=== PATIENT | male | born 1945 | race African-American/Black ===

== ENCOUNTER 2019-08-01 08:11 | Inpatient (IN) ==
[2019-08-01] MEDS ORDERED: FUROSEMIDE 100 MG/10 ML VIAL IV STA (08:35)
[2019-08-01] MEDS ORDERED: ALBUTEROL 2.5 MG/3 ML NEB RESP TX STA (08:37)
[2019-08-01 09:02] LABS: Basophils % 0.5 % (0.0-0.8); Eosinophils # 0.4 10*3/uL (0.0-0.87); Eosinophils % 4.4 % (0.00-10.9); Hemoglobin 13.7 GM/DL (14.0-18.0); Immature Granulocytes % 0.4 %; Immature Granulocytes Absolute 0.03 #; Lymphocytes # 2.2 10*3/uL (1.4-4.0); Lymphocytes % 26.2 % (21.2-54.2); Mean Corpuscular HGB Conc 34.3 GM/DL (32-36); Mean Corpuscular Volume 93.5 FL (87-102); Mean Platelet Volume 9.1 FL (9.6-12.0); Monocytes % 8.8 % (1.7-12.7); Neutrophils % 59.7 % (38.7-73.9); Platelet Count 199 T/CUMM (130-400); Red Blood Count 4.28 MC/CUMM (3.8-5.5); Red Cell Distribution Width 12.8 % (9.3-17.3); White Blood Count 8.4 T/CUMM (4-12)
[2019-08-01 09:39] LABS: Bilirubin,Total 0.4 MG/DL (0.2-1.0); Calcium 8.9 MG/DL (8.5-10.1); Osmolality,Calculated 293.3 MOS/KG (273-304); Total Protein 7.3 G/DL (6.4-8.3)
[2019-08-01] MEDS ORDERED: methylPREDNISolone SOD SUC 125 MG/2 ML VIAL IV STA (10:24)
[2019-08-01] MEDS ORDERED: ALBUTEROL/IPRATROPIUM 3 ML NEB RESP TX STA (10:25)
[2019-08-01] MEDS ORDERED: ALBUTEROL/IPRATROPIUM 3 ML NEB RESP TX PRN (13:30)
[2019-08-01] MEDS ORDERED: ONDANSETRON 4 MG/2 ML VIAL IV PRN (13:34)
[2019-08-01] MEDS ORDERED: GLUCAGON 1 MG VIAL IM PRN (13:34)
[2019-08-01] MEDS ORDERED: ACETAMINOPHEN 325 MG TABLET PO PRN (13:34)
[2019-08-01] MEDS ORDERED: DOCUSATE SODIUM 100 MG CAPSULE PO PRN (13:34)
[2019-08-01] MEDS ORDERED: DEXTROSE 50% 25 GM/50 ML VIAL IV PRN (13:34)
[2019-08-01] MEDS ORDERED: ENOXAPARIN 80 MG/0.8 ML SYRINGE SUBCUT ONE (13:42)
[2019-08-01] MEDS: AZITHROMYCIN 250 MG TABLET PO SCH (13:59)
[2019-08-01 14:13] LABS: Risk Ratio 5.63; Thyroid Stimulating Hormone 1.11 uIU/ml (0.358-3.74); VLDL CHOLESTEROL 43.8 MG/DL
[2019-08-01] MEDS: INSULIN LISPRO 100 UNIT/ML SUBCUT SCH ×2 (16:42→21:27)
[2019-08-01] MEDS: ALBUTEROL/IPRATROPIUM 3 ML NEB RESP TX SCH (19:25)
[2019-08-01] MEDS: GABAPENTIN 300 MG CAPSULE PO SCH (21:25)
[2019-08-01] MEDS: glipiZIDE 10 MG TABLET PO SCH (21:26)
[2019-08-01] MEDS: ROSUVASTATIN 20 MG TABLET PO SCH (21:26)
[2019-08-01] MEDS: METOPROLOL TARTRATE 25 MG TABLET PO SCH (21:27)
[2019-08-01] MEDS: DICLOFENAC 1% GEL 100 GM TUBE TOP SCH (21:28)
[2019-08-02] MEDS: ALBUTEROL/IPRATROPIUM 3 ML NEB RESP TX SCH ×4 (01:23→19:27)
[2019-08-02 05:54] LABS: Basophils % 0.1 % (0.0-0.8); Eosinophils % 0.1 % (0.00-10.9); Hematocrit 39.7 VOL% (42.0-52.0); Hemoglobin 13.9 GM/DL (14.0-18.0); Immature Granulocytes % 0.7 %; Immature Granulocytes Absolute 0.11 #; Lymphocytes # 2.7 10*3/uL (1.4-4.0); Mean Corpuscular Volume 91.5 FL (87-102); Mean Platelet Volume 9.1 FL (9.6-12.0); Monocytes % 5.6 % (1.7-12.7); Neutrophils % 77.5 % (38.7-73.9); Platelet Count 208 T/CUMM (130-400); Red Blood Count 4.34 MC/CUMM (3.8-5.5); Red Cell Distribution Width 12.3 % (9.3-17.3); White Blood Count 16.8 T/CUMM (4-12)
[2019-08-02] MEDS ORDERED: SODIUM CHLORIDE 0.9% 1,000 ML IV SCH (08:00)
[2019-08-02] MEDS: ESCITALOPRAM 10 MG TABLET PO SCH (08:50)
[2019-08-02] MEDS: AZITHROMYCIN 250 MG TABLET PO SCH (08:50)
[2019-08-02] MEDS: methylPREDNISolone SOD SUC 40 MG/1 ML VIAL IV SCH ×2 (08:50→16:30)
[2019-08-02] MEDS: amLODIPine 10 MG TABLET PO SCH (08:51)
[2019-08-02] MEDS: METOPROLOL TARTRATE 25 MG TABLET PO SCH ×2 (08:51→21:14)
[2019-08-02] MEDS: glipiZIDE 10 MG TABLET PO SCH (08:51)
[2019-08-02] MEDS: DICLOFENAC 1% GEL 100 GM TUBE TOP SCH ×3 (08:51→21:15)
[2019-08-02] MEDS: PANTOPRAZOLE 40 MG TABLET PO SCH (08:51)
[2019-08-02] MEDS: INSULIN LISPRO 100 UNIT/ML SUBCUT SCH ×4 (08:57→21:18)
[2019-08-02] MEDS ORDERED: LOSARTAN 50 MG TABLET PO SCH (09:00)
[2019-08-02] MEDS ORDERED: NON-FORMULARY MEDICATION (Tiotropium Bromide [Spiriva With Handihaler] 1 CAPSULE) INH SCH (09:00)
[2019-08-02] MEDS: ENOXAPARIN 40 MG/0.4 ML SYRINGE SUBCUT SCH (15:15)
[2019-08-02] MEDS: SODIUM CHLORIDE 0.9% 1,000 ML IV SCH (19:50)
[2019-08-02] MEDS: ROSUVASTATIN 20 MG TABLET PO SCH (21:14)
[2019-08-02] MEDS: GABAPENTIN 300 MG CAPSULE PO SCH (21:14)
[2019-08-03] MEDS: methylPREDNISolone SOD SUC 40 MG/1 ML VIAL IV SCH ×3 (00:43→17:08)
[2019-08-03] MEDS: ALBUTEROL/IPRATROPIUM 3 ML NEB RESP TX SCH ×4 (01:41→19:15)
[2019-08-03 05:00] LABS: Basophils % 0.1 % (0.0-0.8); Hematocrit 36.1 VOL% (42.0-52.0); Hemoglobin 12.3 GM/DL (14.0-18.0); Immature Granulocytes % 0.5 %; Immature Granulocytes Absolute 0.07 #; Lymphocytes # 1.6 10*3/uL (1.4-4.0); Lymphocytes % 11.7 % (21.2-54.2); Mean Corpuscular HGB Conc 34.1 GM/DL (32-36); Mean Corpuscular Volume 92.3 FL (87-102); Mean Platelet Volume 9.2 FL (9.6-12.0); Monocytes % 1.9 % (1.7-12.7); Neutrophils % 85.8 % (38.7-73.9); Platelet Count 191 T/CUMM (130-400); Red Blood Count 3.91 MC/CUMM (3.8-5.5); Red Cell Distribution Width 12.8 % (9.3-17.3)
[2019-08-03 05:28] LABS: Calcium 8.5 MG/DL (8.5-10.1); Osmolality,Calculated 298.7 MOS/KG (273-304)
[2019-08-03] MEDS: SODIUM CHLORIDE 0.9% 1,000 ML IV SCH (06:13)
[2019-08-03 07:40] LABS: Total Protein (Chem) 6.7 G/DL (6.4-8.3)
[2019-08-03 08:43] LABS: Albumin (SPE) 3.9 G/DL (3.2-5.3); Albumin (SPE) Rel % 57.5 %; Alpha 1 (SPE) 0.2 G/DL (0.1-0.4); Alpha 1 (SPE) Rel % 2.7 %; Alpha 2 (SPE) 0.9 G/DL (0.4-1.0); Beta (SPE) 0.8 G/DL (0.5-1.1); Beta (SPE) Rel % 11.4 %; Gamma (SPE) Rel % 14.4 %
[2019-08-03] MEDS: PANTOPRAZOLE 40 MG TABLET PO SCH (09:22)
[2019-08-03] MEDS: AZITHROMYCIN 250 MG TABLET PO SCH (09:23)
[2019-08-03] MEDS: ESCITALOPRAM 10 MG TABLET PO SCH (09:23)
[2019-08-03] MEDS: METOPROLOL TARTRATE 25 MG TABLET PO SCH ×2 (09:23→20:31)
[2019-08-03] MEDS: amLODIPine 10 MG TABLET PO SCH (09:24)
[2019-08-03] MEDS: INSULIN LISPRO 100 UNIT/ML SUBCUT SCH ×4 (09:27→21:51)
[2019-08-03] MEDS: SODIUM BICARB INJ 50 MEQ in SODIUM CHLORIDE 0.45% 1,000 ML IV SCH ×2 (09:32→20:11)
[2019-08-03] MEDS: DICLOFENAC 1% GEL 100 GM TUBE TOP SCH ×3 (09:36→20:31)
[2019-08-03] MEDS: GABAPENTIN 300 MG CAPSULE PO SCH (20:31)
[2019-08-03] MEDS: ENOXAPARIN 40 MG/0.4 ML SYRINGE SUBCUT SCH (20:31)
[2019-08-03] MEDS: ROSUVASTATIN 20 MG TABLET PO SCH (20:31)
[2019-08-04] MEDS: ALBUTEROL/IPRATROPIUM 3 ML NEB RESP TX SCH ×4 (00:05→20:35)
[2019-08-04] MEDS: methylPREDNISolone SOD SUC 40 MG/1 ML VIAL IV SCH ×3 (02:06→16:58)
[2019-08-04 05:47] LABS: Basophils % 0.1 % (0.0-0.8); Hemoglobin 12.2 GM/DL (14.0-18.0); Immature Granulocytes Absolute 0.12 #; Lymphocytes # 1.4 10*3/uL (1.4-4.0); Lymphocytes % 11.2 % (21.2-54.2); Mean Corpuscular HGB Conc 34.9 GM/DL (32-36); Mean Corpuscular Volume 92.3 FL (87-102); Mean Platelet Volume 9.1 FL (9.6-12.0); Monocytes % 3.6 % (1.7-12.7); Neutrophils % 84.1 % (38.7-73.9); Platelet Count 197 T/CUMM (130-400); Red Blood Count 3.79 MC/CUMM (3.8-5.5); Red Cell Distribution Width 12.5 % (9.3-17.3); White Blood Count 12.3 T/CUMM (4-12)
[2019-08-04 06:02] LABS: Calcium 8.7 MG/DL (8.5-10.1)
[2019-08-04] MEDS: SODIUM BICARB INJ 50 MEQ in SODIUM CHLORIDE 0.45% 1,000 ML IV SCH ×2 (06:33→23:02)
[2019-08-04] MEDS: PANTOPRAZOLE 40 MG TABLET PO SCH (09:40)
[2019-08-04] MEDS: METOPROLOL TARTRATE 25 MG TABLET PO SCH ×2 (09:41→20:54)
[2019-08-04] MEDS: amLODIPine 10 MG TABLET PO SCH (09:41)
[2019-08-04] MEDS: AZITHROMYCIN 250 MG TABLET PO SCH (09:41)
[2019-08-04] MEDS: ESCITALOPRAM 10 MG TABLET PO SCH (09:41)
[2019-08-04] MEDS: INSULIN LISPRO 100 UNIT/ML SUBCUT SCH ×4 (09:42→20:55)
[2019-08-04] MEDS: DICLOFENAC 1% GEL 100 GM TUBE TOP SCH ×3 (09:43→20:55)
[2019-08-04] MEDS: ROSUVASTATIN 20 MG TABLET PO SCH (20:54)
[2019-08-04] MEDS: glipiZIDE 10 MG TABLET PO SCH (20:54)
[2019-08-04] MEDS: GABAPENTIN 300 MG CAPSULE PO SCH (20:54)
[2019-08-04] MEDS: ENOXAPARIN 40 MG/0.4 ML SYRINGE SUBCUT SCH (20:54)
[2019-08-05] MEDS: ALBUTEROL/IPRATROPIUM 3 ML NEB RESP TX SCH ×2 (00:11→07:25)
[2019-08-05] MEDS: methylPREDNISolone SOD SUC 40 MG/1 ML VIAL IV SCH ×2 (01:13→10:25)
[2019-08-05 05:36] LABS: Basophils % 0.1 % (0.0-0.8); Hematocrit 34.1 VOL% (42.0-52.0); Hemoglobin 11.8 GM/DL (14.0-18.0); Immature Granulocytes % 0.8 %; Immature Granulocytes Absolute 0.08 #; Lymphocytes # 1.2 10*3/uL (1.4-4.0); Lymphocytes % 11.2 % (21.2-54.2); Mean Corpuscular HGB Conc 34.6 GM/DL (32-36); Mean Corpuscular Volume 91.4 FL (87-102); Mean Platelet Volume 9.5 FL (9.6-12.0); Monocytes % 3.3 % (1.7-12.7); Neutrophils % 84.6 % (38.7-73.9); Platelet Count 196 T/CUMM (130-400); Red Blood Count 3.73 MC/CUMM (3.8-5.5); Red Cell Distribution Width 12.4 % (9.3-17.3); White Blood Count 10.6 T/CUMM (4-12)
[2019-08-05 05:54] LABS: Calcium 8.1 MG/DL (8.5-10.1); Osmolality,Calculated 294.1 MOS/KG (273-304)
[2019-08-05] MEDS ORDERED: BISACODYL 5 MG TABLET PO PRN (08:37)
[2019-08-05 09:05] VITALS: BP 120/55
[2019-08-05] MEDS: ESCITALOPRAM 10 MG TABLET PO SCH (10:23)
[2019-08-05] MEDS: AZITHROMYCIN 250 MG TABLET PO SCH (10:23)
[2019-08-05] MEDS: PANTOPRAZOLE 40 MG TABLET PO SCH (10:24)
[2019-08-05] MEDS: METOPROLOL TARTRATE 25 MG TABLET PO SCH (10:24)
[2019-08-05] MEDS: glipiZIDE 10 MG TABLET PO SCH (10:24)
[2019-08-05] MEDS: INSULIN LISPRO 100 UNIT/ML SUBCUT SCH ×2 (10:24→12:37)
[2019-08-05] MEDS: amLODIPine 10 MG TABLET PO SCH (10:24)
[2019-08-05] MEDS: DICLOFENAC 1% GEL 100 GM TUBE TOP SCH (10:32)
[2019-08-05] MEDS: SODIUM BICARB INJ 50 MEQ in SODIUM CHLORIDE 0.45% 1,000 ML IV SCH (10:33)
== END 2019-08-05 12:34 | disposition home or self-care (01) | DRG 191 ==
LOC: N.ED 08:11 → SUATTDRO 12:21 → N.EDINP 12:21 → N.2E 13:12
PROVIDERS: ADMIT Internal Medicine; ATTEND Internal Medicine

== ENCOUNTER 2019-09-25 23:14 | Observation (INO) ==
[2019-09-25] MEDS ORDERED: methylPREDNISolone SOD SUC 125 MG/2 ML VIAL IV STA (23:35)
[2019-09-25] MEDS ORDERED: AZITHROMYCIN INJ 500 MG in SODIUM CHLORIDE 0.9% 250 ML IV STA (23:35)
[2019-09-25] MEDS ORDERED: ONDANSETRON 4 MG/2 ML VIAL IV STA (23:35)
[2019-09-25] MEDS ORDERED: ALBUTEROL NEB SOLN 5 MG/ML 20 ML/BOTTLE CONT NEB SCH (23:45)
[2019-09-26 00:06] LABS: Basophils # 0.1 10*3/uL (0.0-0.2); Basophils % 0.5 % (0.0-0.8); Eosinophils # 0.6 10*3/uL (0.0-0.87); Eosinophils % 6.4 % (0.00-10.9); Hematocrit 43.3 VOL% (42.0-52.0); Hemoglobin 14.5 GM/DL (14.0-18.0); Immature Granulocytes % 0.4 %; Immature Granulocytes Absolute 0.04 #; Lymphocytes % 31.9 % (21.2-54.2); Mean Corpuscular HGB Conc 33.5 GM/DL (32-36); Mean Corpuscular Volume 94.5 FL (87-102); Mean Platelet Volume 8.7 FL (9.6-12.0); Monocytes % 7.2 % (1.7-12.7); Neutrophils % 53.6 % (38.7-73.9); Platelet Count 212 T/CUMM (130-400); Red Blood Count 4.58 MC/CUMM (3.8-5.5); Red Cell Distribution Width 12.8 % (9.3-17.3); White Blood Count 9.4 T/CUMM (4-12)
[2019-09-26 00:20] LABS: INR 0.9; PT Patient Result 10.2 SECS (9.6-12.2); Partial Thromboplastin Time 34.8 SECS (20.8-36.0)
[2019-09-26 00:37] LABS: Alanine Aminotransferase 23 U/L (16-61); Albumin 3.2 G/DL (3.4-5.0); Alkaline Phosphatase 77 U/L (45-117); Aspartate Amino Transferase 15 U/L (0-37); Bilirubin,Total < 0.39 MG/DL (0.2-1.0); Blood Urea Nitrogen 38 MG/DL (7-18); Calcium 9.4 MG/DL (8.5-10.1); Estimated Glom Filtration Rate 25 ML/MIN; Glucose 163 MG/DL (74-106); Osmolality,Calculated 285.8 MOS/KG (273-304); Total Protein 7.2 G/DL (6.4-8.3); Troponin I < 0.015 NG/ML (0.00-0.045)
[2019-09-26] MEDS ORDERED: MAGNESIUM SULF RIDER 2 GM in PREMIX 1 EACH IV STA (00:42)
[2019-09-26] MEDS ORDERED: hydrALAZINE 20 MG/1 ML VIAL IV PRN (01:20)
[2019-09-26] MEDS ORDERED: GLUCAGON 1 MG VIAL IM PRN (01:20)
[2019-09-26] MEDS ORDERED: ALBUTEROL 2.5 MG/3 ML NEB RESP TX PRN (01:20)
[2019-09-26] MEDS ORDERED: ACETAMINOPHEN 325 MG TABLET PO PRN (01:20)
[2019-09-26] MEDS ORDERED: ZALEPLON 5 MG CAPSULE PO PRN (01:20)
[2019-09-26] MEDS ORDERED: MORPHINE 4 MG/1 ML VIAL IV PRN (01:20)
[2019-09-26] MEDS ORDERED: ONDANSETRON 4 MG/2 ML VIAL IV PRN (01:20)
[2019-09-26] MEDS ORDERED: DOCUSATE SODIUM 100 MG CAPSULE PO PRN (01:20)
[2019-09-26] MEDS ORDERED: DEXTROSE 10% 250 ML BAG IV PRN (01:45)
[2019-09-26] MEDS: ALBUTEROL/IPRATROPIUM 3 ML NEB RESP TX SCH ×6 (03:58→22:29)
[2019-09-26 04:37] LABS: ABG Base Excess -4.4 MMOL/L (-2.5-2.5); ABG HCO3 20.8 MMOL/L (20-26); ABG Oxygen Saturation 96.2 % (95-100); ABG PCO2 42.3 MM HG (35-48); ABG PH 7.318 (7.35-7.45); ABG PO2 83.5 MM HG (80-95); ABG TCO2 18.7 MMOL/L (23-27); Allen Test Positive
[2019-09-26 05:36] LABS: Calcium 9.2 MG/DL (8.5-10.1)
[2019-09-26] MEDS: BUDESONIDE 0.5 MG/2 ML NEB RESP TX SCH ×2 (07:50→20:01)
[2019-09-26] MEDS: ARFORMOTEROL 15 MCG/2 ML NEB RESP TX SCH ×2 (07:50→19:59)
[2019-09-26] MEDS: PANTOPRAZOLE 40 MG TABLET PO SCH (09:27)
[2019-09-26] MEDS: methylPREDNISolone SOD SUC 125 MG/2 ML VIAL IV SCH ×2 (09:27→15:57)
[2019-09-26] MEDS: INSULIN LISPRO 100 UNIT/ML SUBCUT SCH ×4 (09:29→21:30)
[2019-09-26] MEDS: NICOTINE 21 MG/24 HR PATCH TRANSDERM SCH (09:31)
[2019-09-26] MEDS ORDERED: FUROSEMIDE 40 MG/4 ML VIAL IV ONE (13:19)
[2019-09-26] MEDS ORDERED: MAGNESIUM HYDROXIDE SUSP 30 ML UDCUP PO PRN (13:28)
[2019-09-26] MEDS: LOSARTAN 50 MG TABLET PO SCH (13:31)
[2019-09-26] MEDS: amLODIPine 10 MG TABLET PO SCH (13:31)
[2019-09-26] MEDS: glipiZIDE 10 MG TABLET PO SCH ×2 (13:45→21:29)
[2019-09-26] MEDS: ESCITALOPRAM 10 MG TABLET PO SCH (13:45)
[2019-09-26] MEDS: GABAPENTIN 300 MG CAPSULE PO SCH (21:29)
[2019-09-27] MEDS: AZITHROMYCIN INJ 500 MG in SODIUM CHLORIDE 0.9% 250 ML IV SCH (00:24)
[2019-09-27] MEDS: methylPREDNISolone SOD SUC 125 MG/2 ML VIAL IV SCH ×3 (00:24→16:22)
[2019-09-27] MEDS: guaiFENesin/DM ER 600-30 MG TABLET PO PRN (00:28)
[2019-09-27] MEDS: ALBUTEROL/IPRATROPIUM 3 ML NEB RESP TX SCH ×6 (03:32→23:30)
[2019-09-27 05:37] LABS: Basophils % 0.1 % (0.0-0.8); Hematocrit 35.4 VOL% (42.0-52.0); Hemoglobin 12.1 GM/DL (14.0-18.0); Immature Granulocytes % 0.7 %; Immature Granulocytes Absolute 0.12 #; Lymphocytes # 1.4 10*3/uL (1.4-4.0); Lymphocytes % 8.7 % (21.2-54.2); Mean Corpuscular HGB Conc 34.2 GM/DL (32-36); Mean Corpuscular Volume 92.2 FL (87-102); Mean Platelet Volume 9.4 FL (9.6-12.0); Monocytes % 2.5 % (1.7-12.7); Platelet Count 203 T/CUMM (130-400); Red Blood Count 3.84 MC/CUMM (3.8-5.5); White Blood Count 16.4 T/CUMM (4-12)
[2019-09-27 05:51] LABS: Alanine Aminotransferase 19 U/L (16-61); Albumin 2.8 G/DL (3.4-5.0); Alkaline Phosphatase 53 U/L (45-117); Aspartate Amino Transferase 13 U/L (0-37); Bilirubin,Total < 0.39 MG/DL (0.2-1.0); Blood Urea Nitrogen 56 MG/DL (7-18); Calcium 9.2 MG/DL (8.5-10.1); Estimated Glom Filtration Rate 23 ML/MIN; Glucose 208 MG/DL (74-106); Osmolality,Calculated 294.8 MOS/KG (273-304); Total Protein 6.2 G/DL (6.4-8.3)
[2019-09-27] MEDS: BUDESONIDE 0.5 MG/2 ML NEB RESP TX SCH (07:27)
[2019-09-27] MEDS: ARFORMOTEROL 15 MCG/2 ML NEB RESP TX SCH ×2 (07:27→20:10)
[2019-09-27] MEDS: INSULIN LISPRO 100 UNIT/ML SUBCUT SCH ×4 (10:22→21:16)
[2019-09-27] MEDS: glipiZIDE 10 MG TABLET PO SCH ×2 (10:24→21:16)
[2019-09-27] MEDS: amLODIPine 10 MG TABLET PO SCH (10:24)
[2019-09-27] MEDS: LOSARTAN 50 MG TABLET PO SCH (10:25)
[2019-09-27] MEDS: ESCITALOPRAM 10 MG TABLET PO SCH (10:25)
[2019-09-27] MEDS: PANTOPRAZOLE 40 MG TABLET PO SCH (10:25)
[2019-09-27] MEDS: NICOTINE 21 MG/24 HR PATCH TRANSDERM SCH (10:25)
[2019-09-27] MEDS ORDERED: FUROSEMIDE 40 MG/4 ML VIAL IV ONE (16:06)
[2019-09-27] MEDS: GABAPENTIN 300 MG CAPSULE PO SCH (21:16)
[2019-09-28] MEDS: AZITHROMYCIN INJ 500 MG in SODIUM CHLORIDE 0.9% 250 ML IV SCH (00:22)
[2019-09-28] MEDS: guaiFENesin/DM ER 600-30 MG TABLET PO PRN (01:22)
[2019-09-28] MEDS: ALBUTEROL/IPRATROPIUM 3 ML NEB RESP TX SCH ×3 (02:20→11:00)
[2019-09-28 02:31] LABS: Basophils % 0.1 % (0.0-0.8); Hematocrit 35.8 VOL% (42.0-52.0); Hemoglobin 12.1 GM/DL (14.0-18.0); Immature Granulocytes % 0.5 %; Immature Granulocytes Absolute 0.08 #; Lymphocytes # 1.5 10*3/uL (1.4-4.0); Lymphocytes % 9.3 % (21.2-54.2); Mean Corpuscular HGB Conc 33.8 GM/DL (32-36); Mean Corpuscular Volume 92.5 FL (87-102); Mean Platelet Volume 8.7 FL (9.6-12.0); Monocytes % 6.6 % (1.7-12.7); Neutrophils % 83.5 % (38.7-73.9); Platelet Count 207 T/CUMM (130-400); Red Blood Count 3.87 MC/CUMM (3.8-5.5); Red Cell Distribution Width 13.1 % (9.3-17.3); White Blood Count 16.1 T/CUMM (4-12)
[2019-09-28 02:48] LABS: Alanine Aminotransferase 22 U/L (16-61); Albumin 2.8 G/DL (3.4-5.0); Alkaline Phosphatase 62 U/L (45-117); Aspartate Amino Transferase 18 U/L (0-37); Bilirubin,Total < 0.39 MG/DL (0.2-1.0); Blood Urea Nitrogen 69 MG/DL (7-18); Calcium 9.1 MG/DL (8.5-10.1); Estimated Glom Filtration Rate 19 ML/MIN; Glucose 128 MG/DL (74-106); Osmolality,Calculated 287.4 MOS/KG (273-304); Total Protein 6.1 G/DL (6.4-8.3)
[2019-09-28] MEDS: ARFORMOTEROL 15 MCG/2 ML NEB RESP TX SCH (07:59)
[2019-09-28] MEDS: ESCITALOPRAM 10 MG TABLET PO SCH (08:44)
[2019-09-28] MEDS: glipiZIDE 10 MG TABLET PO SCH (08:44)
[2019-09-28] MEDS: LOSARTAN 50 MG TABLET PO SCH (08:44)
[2019-09-28] MEDS: PANTOPRAZOLE 40 MG TABLET PO SCH (08:44)
[2019-09-28] MEDS: amLODIPine 10 MG TABLET PO SCH (08:45)
[2019-09-28] MEDS: INSULIN LISPRO 100 UNIT/ML SUBCUT SCH ×2 (08:45→11:17)
[2019-09-28] MEDS: NICOTINE 21 MG/24 HR PATCH TRANSDERM SCH (08:45)
[2019-09-28 12:20] VITALS: BP 164/88
== END 2019-09-28 13:59 | disposition home or self-care (01) ==
LOC: EDBD → EDUNIT# → N.ED 23:14 → N.EDINP 23:14 → SUATTDRO 09-26 01:20 → N.2W 09-26 02:28 → N.4E 09-26 16:25
PROVIDERS: ADMIT Internal Medicine; ATTEND Emergency Medicine

== ENCOUNTER 2019-12-22 08:54 | Inpatient (IN) ==
[2019-12-22] MEDS ORDERED: ALBUTEROL/IPRATROPIUM 3 ML NEB RESP TX STA (09:20)
[2019-12-22] MEDS ORDERED: methylPREDNISolone SOD SUC 125 MG/2 ML VIAL IV STA (09:20)
[2019-12-22 09:45] LABS: Basophils # 0.1 10*3/uL (0.0-0.2); Basophils % 0.6 % (0.0-0.8); Eosinophils # 0.3 10*3/uL (0.0-0.87); Eosinophils % 2.5 % (0.00-10.9); Hematocrit 42.9 VOL% (42.0-52.0); Hemoglobin 14.4 GM/DL (14.0-18.0); Immature Granulocytes % 0.4 %; Immature Granulocytes Absolute 0.05 #; Lymphocytes # 1.3 10*3/uL (1.4-4.0); Lymphocytes % 11.5 % (21.2-54.2); Mean Corpuscular HGB Conc 33.6 GM/DL (32-36); Mean Corpuscular Volume 93.9 FL (87-102); Mean Platelet Volume 8.8 FL (9.6-12.0); Monocytes % 5.5 % (1.7-12.7); Neutrophils % 79.5 % (38.7-73.9); Platelet Count 189 T/CUMM (130-400); Red Blood Count 4.57 MC/CUMM (3.8-5.5); Red Cell Distribution Width 13.1 % (9.3-17.3); White Blood Count 11.5 T/CUMM (4-12)
[2019-12-22 10:04] LABS: Alanine Aminotransferase 16 U/L (16-61); Albumin 3.3 G/DL (3.4-5.0); Alkaline Phosphatase 57 U/L (45-117); Aspartate Amino Transferase 16 U/L (0-37); Bilirubin,Total < 0.39 MG/DL (0.2-1.0); Blood Urea Nitrogen 43 MG/DL (7-18); Calcium 9.1 MG/DL (8.5-10.1); Estimated Glom Filtration Rate 25 ML/MIN; Glucose 209 MG/DL (74-106); Osmolality,Calculated 295.4 MOS/KG (273-304); Total Protein 6.6 G/DL (6.4-8.3)
[2019-12-22] MEDS ORDERED: AZITHROMYCIN 250 MG TABLET PO STA (10:04)
[2019-12-22] MEDS ORDERED: cefTRIAXone 1,000 MG in SODIUM CHLORIDE 0.9% 100 ML IV STA (10:04)
[2019-12-22 10:29] LABS: Ferritin 262.4 ng/ml (26-388)
[2019-12-22] MEDS ORDERED: guaiFENesin/DM ER 600-30 MG TABLET PO PRN (11:09)
[2019-12-22] MEDS ORDERED: NICOTINE 21 MG/24 HR PATCH TRANSDERM PRN (11:09)
[2019-12-22] MEDS ORDERED: ONDANSETRON 4 MG/2 ML VIAL IV PRN (11:09)
[2019-12-22 11:47] LABS: ABG HCO3 22.7 MMOL/L (20-26); ABG Oxygen Saturation 96.7 % (95-100); ABG PCO2 45.3 MM HG (35-48); ABG PH 7.335 (7.35-7.45); ABG PO2 83.8 MM HG (80-95); ABG TCO2 20.8 MMOL/L (23-27)
[2019-12-22] MEDS: ENOXAPARIN 30 MG/0.3 ML SYRINGE SUBCUT SCH (13:43)
[2019-12-22] MEDS: methylPREDNISolone SOD SUC 40 MG/1 ML VIAL IV SCH ×2 (13:48→20:28)
[2019-12-22] MEDS: ALBUTEROL/IPRATROPIUM 3 ML NEB RESP TX SCH ×2 (14:00→20:02)
[2019-12-22] MEDS: ROSUVASTATIN 20 MG TABLET PO SCH (20:28)
[2019-12-22] MEDS: GABAPENTIN 300 MG CAPSULE PO SCH (20:29)
[2019-12-22] MEDS: glipiZIDE 10 MG TABLET PO SCH (20:29)
[2019-12-22] MEDS: METOPROLOL TARTRATE 25 MG TABLET PO SCH (20:29)
[2019-12-23] MEDS: ALBUTEROL/IPRATROPIUM 3 ML NEB RESP TX SCH ×2 (01:30→07:17)
[2019-12-23] MEDS: methylPREDNISolone SOD SUC 40 MG/1 ML VIAL IV SCH ×3 (04:01→20:32)
[2019-12-23 05:53] LABS: Basophils % 0.1 % (0.0-0.8); Eosinophils % 0.1 % (0.00-10.9); Hematocrit 40.3 VOL% (42.0-52.0); Hemoglobin 13.8 GM/DL (14.0-18.0); Immature Granulocytes % 0.8 %; Immature Granulocytes Absolute 0.14 #; Lymphocytes # 2.1 10*3/uL (1.4-4.0); Lymphocytes % 11.9 % (21.2-54.2); Mean Corpuscular HGB Conc 34.2 GM/DL (32-36); Mean Corpuscular Volume 91.2 FL (87-102); Mean Platelet Volume 9.2 FL (9.6-12.0); Monocytes % 2.7 % (1.7-12.7); Neutrophils % 84.4 % (38.7-73.9); Platelet Count 189 T/CUMM (130-400); Red Blood Count 4.42 MC/CUMM (3.8-5.5); White Blood Count 17.3 T/CUMM (4-12)
[2019-12-23 06:17] LABS: Bilirubin,Total 0.6 MG/DL (0.2-1.0); Calcium 9.1 MG/DL (8.5-10.1); Osmolality,Calculated 285.1 MOS/KG (273-304); Thyroid Stimulating Hormone 0.331 uIU/ml (0.358-3.74); Total Protein 6.7 G/DL (6.4-8.3)
[2019-12-23] MEDS ORDERED: ALBUTEROL/IPRATROPIUM 3 ML NEB RESP TX PRN (08:00)
[2019-12-23] MEDS ORDERED: DEXTROSE 10% 250 ML BAG IV PRN (08:05)
[2019-12-23] MEDS ORDERED: GLUCAGON 1 MG VIAL IM PRN (08:05)
[2019-12-23] MEDS: IPRATROPIUM 500 MCG/2.5 ML NEB RESP TX SCH ×4 (08:44→19:23)
[2019-12-23] MEDS: cefTRIAXone 1,000 MG in SYRINGE 1 EACH IV SCH (09:29)
[2019-12-23] MEDS: AZITHROMYCIN 250 MG TABLET PO SCH (09:30)
[2019-12-23] MEDS: ESCITALOPRAM 10 MG TABLET PO SCH (09:30)
[2019-12-23] MEDS: CYPROHEPTADINE 4 MG TABLET PO SCH ×2 (09:30→20:32)
[2019-12-23] MEDS: amLODIPine 10 MG TABLET PO SCH (09:30)
[2019-12-23] MEDS: PANTOPRAZOLE 40 MG TABLET PO SCH (09:30)
[2019-12-23] MEDS: METOPROLOL TARTRATE 25 MG TABLET PO SCH ×2 (09:30→20:33)
[2019-12-23] MEDS: glipiZIDE 10 MG TABLET PO SCH ×2 (09:30→20:32)
[2019-12-23] MEDS: CHOLECALCIFEROL 1,000 UNIT TABLET PO SCH (09:30)
[2019-12-23 13:52] LABS: CKMB % 4.8 %
[2019-12-23 13:53] LABS: Troponin I 0.08 NG/ML (0.00-0.045)
[2019-12-23] MEDS: INSULIN LISPRO 100 UNIT/ML SUBCUT SCH ×3 (13:56→20:33)
[2019-12-23] MEDS: ENOXAPARIN 30 MG/0.3 ML SYRINGE SUBCUT SCH (14:07)
[2019-12-23] MEDS ORDERED: ACETAMINOPHEN 325 MG TABLET PO PRN (15:22)
[2019-12-23 16:46] LABS: CKMB % 4.3 %
[2019-12-23 16:52] LABS: Troponin I 0.079 NG/ML (0.00-0.045)
[2019-12-23] MEDS: ROSUVASTATIN 20 MG TABLET PO SCH (20:32)
[2019-12-23] MEDS: GABAPENTIN 300 MG CAPSULE PO SCH (20:32)
[2019-12-24] MEDS: methylPREDNISolone SOD SUC 40 MG/1 ML VIAL IV SCH ×2 (03:25→11:42)
[2019-12-24] MEDS: IPRATROPIUM 500 MCG/2.5 ML NEB RESP TX SCH (07:06)
[2019-12-24 07:34] LABS: Basophils % 0.1 % (0.0-0.8); Hematocrit 43.9 VOL% (42.0-52.0); Hemoglobin 14.9 GM/DL (14.0-18.0); Immature Granulocytes % 0.9 %; Immature Granulocytes Absolute 0.18 #; Lymphocytes # 1.7 10*3/uL (1.4-4.0); Lymphocytes % 8.9 % (21.2-54.2); Mean Corpuscular HGB Conc 33.9 GM/DL (32-36); Mean Corpuscular Volume 92.4 FL (87-102); Mean Platelet Volume 9.4 FL (9.6-12.0); Neutrophils % 88.1 % (38.7-73.9); Platelet Count 206 T/CUMM (130-400); Red Blood Count 4.75 MC/CUMM (3.8-5.5); Red Cell Distribution Width 12.9 % (9.3-17.3); White Blood Count 19.1 T/CUMM (4-12)
[2019-12-24] MEDS: cefTRIAXone 1,000 MG in SYRINGE 1 EACH IV SCH (08:07)
[2019-12-24] MEDS: PANTOPRAZOLE 40 MG TABLET PO SCH (08:07)
[2019-12-24] MEDS: amLODIPine 10 MG TABLET PO SCH (08:08)
[2019-12-24] MEDS: glipiZIDE 10 MG TABLET PO SCH (08:08)
[2019-12-24] MEDS: ESCITALOPRAM 10 MG TABLET PO SCH (08:08)
[2019-12-24] MEDS: CHOLECALCIFEROL 1,000 UNIT TABLET PO SCH (08:08)
[2019-12-24] MEDS: METOPROLOL TARTRATE 25 MG TABLET PO SCH (08:08)
[2019-12-24] MEDS: AZITHROMYCIN 250 MG TABLET PO SCH (08:08)
[2019-12-24] MEDS: CYPROHEPTADINE 4 MG TABLET PO SCH (08:08)
[2019-12-24] MEDS: INSULIN LISPRO 100 UNIT/ML SUBCUT SCH ×2 (08:17→11:40)
[2019-12-24 08:40] LABS: Alanine Aminotransferase 25 U/L (16-61); Albumin 3.2 G/DL (3.4-5.0); Alkaline Phosphatase 63 U/L (45-117); Aspartate Amino Transferase 29 U/L (0-37); Bilirubin,Total < 0.39 MG/DL (0.2-1.0); Blood Urea Nitrogen 65 MG/DL (7-18); Calcium 9.3 MG/DL (8.5-10.1); Estimated Glom Filtration Rate 22 ML/MIN; Glucose 226 MG/DL (74-106); Osmolality,Calculated 295.1 MOS/KG (273-304); Total Protein 7.2 G/DL (6.4-8.3)
[2019-12-24] MEDS ORDERED: ASPIRIN EC 81 MG TABLET PO SCH (09:00)
[2019-12-24] MEDS ORDERED: BUDESONIDE/FORMOTEROL 160-4.5 INHALER 6 GM INH SCH (10:00)
[2019-12-24 11:36] VITALS: BP 144/91
[2019-12-24] MEDS: ENOXAPARIN 30 MG/0.3 ML SYRINGE SUBCUT SCH (11:41)
== END 2019-12-24 13:48 | disposition home or self-care (01) | DRG 190 ==
LOC: EDUNIT# → EDBD → N.ED 08:54 → N.EDINP 11:09 → N.3E 17:22
PROVIDERS: ADMIT Family Medicine; ATTEND Family Medicine

== ENCOUNTER 2022-01-28 18:09 | Inpatient (IN) ==
[2022-01-28] MEDS ORDERED: ALBUTEROL/IPRATROPIUM 3 ML NEB RESP TX STA ×2 (18:36→19:38)
[2022-01-28 18:56] LABS: Alanine Aminotransferase 14 U/L (16-61); Albumin 3.5 G/DL (3.4-5.0); Alkaline Phosphatase 70 U/L (45-117); Aspartate Amino Transferase 15 U/L (0-37); Bilirubin,Total < 0.39 MG/DL (0.20-1.00); Blood Urea Nitrogen 62 MG/DL (7-18); Calcium 9.5 MG/DL (8.5-10.1); Carbon Dioxide 23 MMOL/L (21-32); Chloride 108 MMOL/L (98-107); Glucose 154 MG/DL (74-106); Osmolality,Calculated 293.8 MOS/KG (273-304); Sodium 137 MMOL/L (136-145)
[2022-01-28 19:03] LABS: Arterial Base Excess iSTAT -2 MMOL/L (-2.5-2.5); Arterial Bicarbonate iSTAT 23.9 MMOL/L (20-26); Arterial O2 Saturation iSTAT 99 % (95-100); Arterial PCO2 iSTAT 46 MM HG (35-48); Arterial PO2 iSTAT 130 MM HG (80-95); Arterial Total CO2 iSTAT 25 MMO/L (23-27); Arterial pH iSTAT 7.326 (7.35-7.45)
[2022-01-28 19:04] LABS: Basophils % 0.4 % (0.0-0.8); Eosinophils # 0.5 10*3/uL (0.0-0.87); Eosinophils % 4.4 % (0.00-10.9); Hematocrit 40.6 VOL% (42.0-52.0); Hemoglobin 13.4 GM/DL (14.0-18.0); Immature Granulocytes % 0.3 %; Immature Granulocytes Absolute 0.03 #; Lymphocytes % 29.3 % (21.2-54.2); Mean Corpuscular Volume 92.3 FL (87-102); Monocytes # 0.6 10*3/uL (0.11-0.8); Monocytes % 5.5 % (1.7-12.7); Neutrophils % 60.1 % (38.7-73.9); Platelet Count 206 T/CUMM (130-400); Red Cell Distribution Width 13.9 % (9.3-17.3); White Blood Count 10.3 T/CUMM (4-12)
[2022-01-28] MEDS ORDERED: SODIUM CHLORIDE 0.9% 1,000 ML IV STA (19:07)
[2022-01-28] MEDS ORDERED: methylPREDNISolone SOD SUC 125 MG/2 ML VIAL IV STA (19:31)
[2022-01-28] MEDS ORDERED: LEVOFLOXACIN INJ 500 MG/100 ML PREMIX IV ONE (19:37)
[2022-01-28] MEDS ORDERED: ACETAMINOPHEN 325 MG TABLET PO PRN (20:07)
[2022-01-28] MEDS ORDERED: ONDANSETRON 4 MG/2 ML VIAL IV PRN (20:07)
[2022-01-28] MEDS ORDERED: MORPHINE 2 MG/1 ML SYRINGE IV PRN (20:07)
[2022-01-28] MEDS ORDERED: GLUCAGON 1 MG VIAL IM PRN (20:07)
[2022-01-28] MEDS ORDERED: hydrALAZINE 20 MG/1 ML VIAL IV PRN (20:07)
[2022-01-28] MEDS ORDERED: DEXTROSE 10% 250 ML BAG IV PRN (20:07)
[2022-01-28 20:19] LABS: Bilirubin,Urine Negative (Negative); Glucose,Urine (UA) Negative (Negative); Ketones,Urine Negative (Negative); Nitrite,Urine Negative (Negative); Protein,Urine >=300 mg/dL (Negative); RBC,Urine 1 /HPF (0-4); Urine Appearance Clear (Clear); Urine Color Yellow (Yellow)
[2022-01-28 20:20] LABS: Blood, Urine Trace mg/dL (Negative); Urine Urobilinogen 0.2 eU/dL (<2.0)
[2022-01-28] MEDS ORDERED: SODIUM CHLORIDE 0.9% 1,000 ML IV SCH (20:30)
[2022-01-29] MEDS: ALBUTEROL/IPRATROPIUM 3 ML NEB RESP TX SCH ×4 (00:06→19:17)
[2022-01-29 04:55] LABS: Basophils % 0.1 % (0.0-0.8); Eosinophils % 0.1 % (0.00-10.9); Hematocrit 39.3 VOL% (42.0-52.0); Hemoglobin 12.7 GM/DL (14.0-18.0); Immature Granulocytes % 0.5 %; Immature Granulocytes Absolute 0.04 #; Lymphocytes # 1.1 10*3/uL (1.4-4.0); Lymphocytes % 14.4 % (21.2-54.2); Mean Corpuscular HGB Conc 32.3 GM/DL (32-36); Mean Corpuscular Volume 93.1 FL (87-102); Mean Platelet Volume 8.8 FL (9.6-12.0); Monocytes # 0.1 10*3/uL (0.11-0.8); NRBC # 0.03 10*3/uL; Neutrophils % 83.9 % (38.7-73.9); Platelet Count 189 T/CUMM (130-400); Red Blood Count 4.22 MC/CUMM (3.8-5.5); Red Cell Distribution Width 14.1 % (9.3-17.3); White Blood Count 7.7 T/CUMM (4-12)
[2022-01-29] MEDS ORDERED: ALBUTEROL/IPRATROPIUM 3 ML NEB RESP TX STA (05:01)
[2022-01-29] MEDS: methylPREDNISolone SOD SUC 125 MG/2 ML VIAL IV SCH ×3 (05:10→17:41)
[2022-01-29 05:29] LABS: Calcium 9.5 MG/DL (8.5-10.1); Osmolality,Calculated 299.5 MOS/KG (273-304); Potassium 5.4 MMOL/L (3.5-5.1)
[2022-01-29] MEDS: SODIUM CHLORIDE 0.9% 1,000 ML IV SCH ×3 (08:13→23:59)
[2022-01-29] MEDS: GABAPENTIN 300 MG CAPSULE PO SCH ×2 (08:53→22:15)
[2022-01-29] MEDS: AZITHROMYCIN 250 MG TABLET PO SCH (08:53)
[2022-01-29] MEDS: SODIUM BICARBONATE 650 MG TABLET PO SCH ×2 (08:53→22:15)
[2022-01-29] MEDS: amLODIPine 10 MG TABLET PO SCH (08:54)
[2022-01-29] MEDS: METOPROLOL TARTRATE 25 MG TABLET PO SCH ×2 (08:54→22:15)
[2022-01-29] MEDS: PANTOPRAZOLE 40 MG TABLET PO SCH (08:54)
[2022-01-29] MEDS: NF- (Fluticasone-Umeclidin-Vilanter [Trelegy Ellipta] 200-62.5-25 mcg INH SCH (09:11)
[2022-01-29] MEDS: ROSUVASTATIN 20 MG TABLET PO SCH (22:15)
[2022-01-29] MEDS: ENOXAPARIN 30 MG/0.3 ML SYRINGE SUBCUT SCH (22:16)
[2022-01-30] MEDS: ALBUTEROL/IPRATROPIUM 3 ML NEB RESP TX SCH ×6 (00:31→19:19)
[2022-01-30] MEDS: methylPREDNISolone SOD SUC 125 MG/2 ML VIAL IV SCH ×4 (00:59→18:10)
[2022-01-30 03:56] LABS: Hematocrit 31.9 VOL% (42.0-52.0); Hemoglobin 10.4 GM/DL (14.0-18.0); Immature Granulocytes % 0.5 %; Immature Granulocytes Absolute 0.06 #; Lymphocytes # 1.2 10*3/uL (1.4-4.0); Lymphocytes % 10.2 % (21.2-54.2); Mean Corpuscular HGB Conc 32.6 GM/DL (32-36); Mean Corpuscular Volume 92.7 FL (87-102); Mean Platelet Volume 8.4 FL (9.6-12.0); Monocytes # 0.4 10*3/uL (0.11-0.8); Monocytes % 3.8 % (1.7-12.7); Neutrophils % 85.5 % (38.7-73.9); Platelet Count 158 T/CUMM (130-400); Red Blood Count 3.44 MC/CUMM (3.8-5.5); Red Cell Distribution Width 14.4 % (9.3-17.3); White Blood Count 11.4 T/CUMM (4-12)
[2022-01-30 04:12] LABS: Calcium 8.6 MG/DL (8.5-10.1); Osmolality,Calculated 303.3 MOS/KG (273-304); Potassium 5.2 MMOL/L (3.5-5.1)
[2022-01-30 04:15] LABS: Parathyroid Hormone Intact 297.5 PG/ML (18.4-80.1)
[2022-01-30 04:32] LABS: Phosphorous 3.4 MG/DL (2.5-4.9)
[2022-01-30] MEDS: SODIUM BICARBONATE 650 MG TABLET PO SCH ×2 (09:01→21:32)
[2022-01-30] MEDS: NF- (Fluticasone-Umeclidin-Vilanter [Trelegy Ellipta] 200-62.5-25 mcg INH SCH (09:01)
[2022-01-30] MEDS: PANTOPRAZOLE 40 MG TABLET PO SCH (09:01)
[2022-01-30] MEDS: amLODIPine 10 MG TABLET PO SCH (09:02)
[2022-01-30] MEDS: GABAPENTIN 300 MG CAPSULE PO SCH ×2 (09:02→21:32)
[2022-01-30] MEDS: AZITHROMYCIN 250 MG TABLET PO SCH (09:02)
[2022-01-30] MEDS: METOPROLOL TARTRATE 25 MG TABLET PO SCH ×2 (09:02→21:32)
[2022-01-30] MEDS: SODIUM CHLORIDE 0.9% 1,000 ML IV SCH (12:13)
[2022-01-30] MEDS: SODIUM BICARB INJ 50 MEQ in SODIUM CHLORIDE 0.45% 1,000 ML IV SCH (14:11)
[2022-01-30] MEDS: ARFORMOTEROL 15 MCG/2 ML NEB RESP TX SCH ×2 (14:42→19:33)
[2022-01-30] MEDS: BUDESONIDE 0.5 MG/2 ML NEB RESP TX SCH ×2 (14:51→19:19)
[2022-01-30 15:09] LABS: Protein/Creatinine Ratio,Urine 3.9 RATIO
[2022-01-30] MEDS ORDERED: LEVOFLOXACIN INJ 500 MG/100 ML PREMIX IV SCH (20:00)
[2022-01-30] MEDS: ROSUVASTATIN 20 MG TABLET PO SCH (21:32)
[2022-01-30] MEDS: ENOXAPARIN 30 MG/0.3 ML SYRINGE SUBCUT SCH (21:32)
[2022-01-31] MEDS: ALBUTEROL/IPRATROPIUM 3 ML NEB RESP TX SCH ×6 (00:25→19:28)
[2022-01-31] MEDS: methylPREDNISolone SOD SUC 125 MG/2 ML VIAL IV SCH ×2 (00:55→06:09)
[2022-01-31] MEDS: SODIUM BICARB INJ 50 MEQ in SODIUM CHLORIDE 0.45% 1,000 ML IV SCH ×2 (01:05→15:08)
[2022-01-31 04:19] LABS: Basophils % 0.1 % (0.0-0.8); Hematocrit 30.7 VOL% (42.0-52.0); Hemoglobin 10.1 GM/DL (14.0-18.0); Immature Granulocytes Absolute 0.09 #; Mean Corpuscular HGB Conc 32.9 GM/DL (32-36); Mean Corpuscular Volume 92.7 FL (87-102); Mean Platelet Volume 9.3 FL (9.6-12.0); Monocytes # 0.4 10*3/uL (0.11-0.8); Monocytes % 4.2 % (1.7-12.7); Neutrophils % 83.7 % (38.7-73.9); Platelet Count 170 T/CUMM (130-400); Red Blood Count 3.31 MC/CUMM (3.8-5.5); Red Cell Distribution Width 14.2 % (9.3-17.3)
[2022-01-31 04:42] LABS: Calcium 8.5 MG/DL (8.5-10.1); Osmolality,Calculated 301.8 MOS/KG (273-304)
[2022-01-31] MEDS: BUDESONIDE 0.5 MG/2 ML NEB RESP TX SCH ×2 (07:08→19:28)
[2022-01-31] MEDS: ARFORMOTEROL 15 MCG/2 ML NEB RESP TX SCH ×2 (07:17→19:28)
[2022-01-31] MEDS: SODIUM BICARBONATE 650 MG TABLET PO SCH ×2 (08:39→20:33)
[2022-01-31] MEDS: AZITHROMYCIN 250 MG TABLET PO SCH (08:39)
[2022-01-31] MEDS: METOPROLOL TARTRATE 25 MG TABLET PO SCH ×2 (08:40→20:33)
[2022-01-31] MEDS: GABAPENTIN 300 MG CAPSULE PO SCH ×2 (08:40→20:33)
[2022-01-31] MEDS: predniSONE 20 MG TABLET PO SCH (08:40)
[2022-01-31] MEDS: PANTOPRAZOLE 40 MG TABLET PO SCH (08:40)
[2022-01-31] MEDS: amLODIPine 10 MG TABLET PO SCH (08:41)
[2022-01-31] MEDS ORDERED: FUROSEMIDE 40 MG/4 ML VIAL IV ONE ×2 (14:23)
[2022-01-31] MEDS: ROSUVASTATIN 20 MG TABLET PO SCH (20:33)
[2022-01-31] MEDS: ENOXAPARIN 30 MG/0.3 ML SYRINGE SUBCUT SCH (20:34)
[2022-02-01] MEDS: ALBUTEROL/IPRATROPIUM 3 ML NEB RESP TX SCH ×3 (00:30→07:25)
[2022-02-01 05:18] LABS: Basophils % 0.1 % (0.0-0.8); Eosinophils % 0.1 % (0.00-10.9); Hematocrit 33.9 VOL% (42.0-52.0); Hemoglobin 11.1 GM/DL (14.0-18.0); Immature Granulocytes % 0.9 %; Immature Granulocytes Absolute 0.09 #; Lymphocytes # 1.9 10*3/uL (1.4-4.0); Lymphocytes % 18.9 % (21.2-54.2); Mean Corpuscular HGB Conc 32.7 GM/DL (32-36); Mean Corpuscular Volume 90.9 FL (87-102); Mean Platelet Volume 10.1 FL (9.6-12.0); Monocytes # 0.8 10*3/uL (0.11-0.8); Monocytes % 7.9 % (1.7-12.7); Neutrophils % 72.1 % (38.7-73.9); Platelet Count 155 T/CUMM (130-400); Red Blood Count 3.73 MC/CUMM (3.8-5.5); Red Cell Distribution Width 13.8 % (9.3-17.3); White Blood Count 9.9 T/CUMM (4-12)
[2022-02-01] MEDS: ARFORMOTEROL 15 MCG/2 ML NEB RESP TX SCH (07:25)
[2022-02-01] MEDS: BUDESONIDE 0.5 MG/2 ML NEB RESP TX SCH (07:25)
[2022-02-01 08:34] VITALS: BP 175/94
[2022-02-01] MEDS: SODIUM BICARBONATE 650 MG TABLET PO SCH (09:19)
[2022-02-01] MEDS: METOPROLOL TARTRATE 25 MG TABLET PO SCH (09:19)
[2022-02-01] MEDS: AZITHROMYCIN 250 MG TABLET PO SCH (09:19)
[2022-02-01] MEDS: PANTOPRAZOLE 40 MG TABLET PO SCH (09:19)
[2022-02-01] MEDS: amLODIPine 10 MG TABLET PO SCH (09:19)
[2022-02-01] MEDS: GABAPENTIN 300 MG CAPSULE PO SCH (09:19)
[2022-02-01] MEDS: predniSONE 20 MG TABLET PO SCH (09:19)
== END 2022-02-01 11:15 | disposition home or self-care (01) | DRG 191 ==
LOC: N.ED 18:09 → N.EDINP 20:07 → SUATTDRO 20:07 → N.TELEN 01-29 07:08
PROVIDERS: ADMIT Emergency Medicine; ATTEND Internal Medicine